=== PATIENT | male | born 1965 | race Caucasian/White ===

== ENCOUNTER 2021-08-06 20:16 | Emergency (ER) | payer OTHER ==
[2021-08-06] MEDS ORDERED: Lidocaine 1% 5 ML VIAL INJECT ONE (20:22)
[2021-08-06] MEDS ORDERED: Bacitracin Oint 1 GM U/D Packet TOP ONE (20:23)
[2021-08-06] MEDS ORDERED: Diphtheria,Pertussis(Acell),Tetanus Vaccine 0.5 ML Syringe IM ONE (21:42)
== END 2021-08-06 22:27 | disposition home or self-care (01) ==
LOC: JP.ED 20:16
DX: S61.412A Laceration without foreign body of left hand, initial encounter (principal); E11.9 Type 2 diabetes mellitus without complications; E78.00 Pure hypercholesterolemia, unspecified; I10 Essential (primary) hypertension; Z79.84 Long term (current) use of oral hypoglycemic drugs; Z79.899 Other long term (current) drug therapy; Z23 Encounter for immunization; W26.0XXA Contact with knife, initial encounter
CPT/HCPCS: 12002; 90471; 90715; 99282; 99282-25